=== PATIENT | male | born 1990 | race Caucasian/White ===

== ENCOUNTER → 2016-11-27 | Outpatient (CLI) | payer OTHER ==
[2016-11-27 10:52] LABS: BASOPHILS % (AUTO) 1 % (0-2); EOSINOPHILS # (AUTO) 0.2 10^3uL; EOSINOPHILS % (AUTO) 2 % (0-4); LYMPHOCYTES # (AUTO) 3.6 X10^3; MEAN CORPUSCULAR HGB CONC 35.3 g/dL (31.0-37.0); MEAN CORPUSCULAR VOLUME 85 FL (80-100); MEAN PLATELET VOLUME 9.5 FL (6.0-9.5); MONOCYTES # (AUTO) 1.3 X10^3; MONOCYTES % (AUTO) 11 % (3-11); NEUTROPHILS # (AUTO) 7.3 X10^3; NEUTROPHILS % (AUTO) 58 % (51-67); PLATELET COUNT 425 10^3uL (150-450); WHITE BLOOD COUNT 12.52 10^3uL (4.0-11.0)
== END ==
LOC: LAB 09:42
PROVIDERS: ATTEND Physician Assistant
DX: R10.30 Lower abdominal pain, unspecified (principal)
CPT/HCPCS: 36415; 74000; 85025

== ENCOUNTER → 2016-11-27 | Outpatient (CLI) | payer OTHER ==
[2016-11-27 12:45] VITALS: BP 154/96
== END ==
LOC: MHUC 09:07
PROVIDERS: ATTEND Physician Assistant
DX: R10.31 Right lower quadrant pain (principal); D72.829 Elevated white blood cell count, unspecified
CPT/HCPCS: 99203

== ENCOUNTER → 2016-12-01 | Emergency (ER) | payer OTHER ==
[~2016-12-01] VITALS: Ht 182.9 cm; Wt 137.2 kg
[~2016-12-01] MED LIST: KETOROLAC 15 MG/ML (TORADOL) 1 ML VIAL IV ONE; ONDANSETRON 2 MG/ML (Z0FRAN) 2 ML VIAL IV ONE; SODIUM CHLORIDE FLUSH 10 ML SYR IV PRN; SODIUM CHLORIDE FLUSH 3 ML SYR IV ONE; fentaNYL 100 MCG/2 ML VIAL IV ONE
[2016-12-01 12:04] LABS: BASOPHILS % (AUTO) 0 % (0-2); EOSINOPHILS # (AUTO) 0.2 10^3uL; EOSINOPHILS % (AUTO) 2 % (0-4); LYMPHOCYTES # (AUTO) 4.5 X10^3; MEAN CORPUSCULAR VOLUME 83 FL (80-100); MEAN PLATELET VOLUME 9.4 FL (6.0-9.5); MONOCYTES # (AUTO) 1.4 X10^3; MONOCYTES % (AUTO) 12 % (3-11); NEUTROPHILS # (AUTO) 5.7 X10^3; NEUTROPHILS % (AUTO) 48 % (51-67); PLATELET COUNT 496 10^3uL (150-450); WHITE BLOOD COUNT 11.89 10^3uL (4.0-11.0)
[2016-12-01 12:13] LABS: ALBUMIN 4.6 g/dL (3.4-5.0); TOTAL PROTEIN 8.4 g/dL (6.4-8.5)
[2016-12-01 13:04] LABS: BILIRUBIN,URINE Negative (Negative); CLARITY,URINE Clear; COLOR,URINE Yellow; GLUCOSE, URINE (UA) Negative (Negative); LEUKOCYTE ESTERASE ,URINE Negative (Negative); UROBILINOGEN,URINE 0.2 mg/dL (0.2-1.0)
[2016-12-01 13:09] VITALS: BP 124/76
== END | disposition home or self-care (01) ==
LOC: EDUNIT# 11:27 → ED 11:29
DX: K63.89 Other specified diseases of intestine (principal)
CPT/HCPCS: 36415; 74177; 80053; 81003; 82150; 83690; 85025; 96361; 96374; 96375; 99283; J1885; J2405; J3010; J7030; Q9967